=== PATIENT | male | born 1980 | race Caucasian/White ===

== ENCOUNTER 2017-04-17 18:16 | Emergency (ER) ==
[2017-04-17 18:23] VITALS: BP 185/113; TEMP 98.4; BMI 36.3
--- NOTE | 2017-04-17 18:28 | ED.PDOC ---
General ED Provider: Dr. 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 [ End ]2 days 98.4 76 16 98% 185/113 07/11 Time Seen by Physician: 18:27 Mode of Arrival: Walk-In Information Source: Patient Exam Limitations: No limitations Nursing and Triage Documentation Reviewed and Agree: No Review of Systems - Review Of Systems Constitutional: Reports: No symptoms Eyes: Reports: No symptoms Ears, Nose, Mouth, Throat: Reports: No symptoms Respiratory: Reports: No symptoms Cardiac: Reports: No symptoms GI: Reports: No symptoms : Reports: No symptoms Musculoskeletal: Reports: Back pain (left sciatic radiation no radiation with SLR but increased backpain L234) Neurological: Reports: Other Endocrine: Reports: No symptoms Hematologic/Lymphatic: Reports: No symptoms All Other Systems: Other Past Medical History - Past Medical History Previously Healthy: Yes Endocrine: Reports: None Cardiovascular: Reports: Hypertension Respiratory: Reports: None Hematological: Reports: None Gastrointestinal: Reports: None Genitourinary: Reports: None Neuro/Psych: Reports: None Musculoskeletal: Reports: None Cancer: Reports: None - Surgical History General Surgical History: Reports: Appendectomy - Family History Family History: Reports: Unknown - Social History Smoking Status: Former smoker Hx Substance Use: No Alcohol Screening: None Physical Exam - Physical Exam Appearance: Well-appearing Pain Distress: Moderate Neck: Supple Respiratory: Airway patent Musculoskeletal: Normal strength, ROM intact, No edema, No calf tenderness ( tender L234) Skin: Warm, Dry, Normal color Neurological: Sensation intact, Motor intact, Reflexes intact, Cranial nerves intact, Alert, Oriented Psychiatric: Affect appropriate, Mood appropriate Critical Care Note - Critical Care Note Total Time (mins): 0 Course - Course Hematology/Chemistry: 04/17/17 18:40 Orders, Labs, Meds: Lab Review 04/17/17 04/17/17 18:40 18:50 WBC 6.20 RBC 5.11 Hgb 15.0 Hct 41.8 L MCV 81.8 MCH 29.4 MCHC 35.9 H RDW Coeff of Maki 12.6 Plt Count 207 Immature Gran % (Auto) 0.2 Neut % (Auto) 61.2 Lymph % (Auto) 26.8 Mason % (Auto) 8.9 Eos % (Auto) 2.4 Baso % (Auto) 0.5 Immature Gran # (Auto) 0.0 Neut # 3.8 Lymph # 1.7 Mason # 0.6 Eos # 0.2 Baso # 0.0 Urine Color Yellow Urine Clarity Clear Urine pH 7.0 Ur Specific [place] 1.015 Urine Protein Negative Urine Glucose (UA) Negative Urine Ketones Negative Urine Blood Negative Urine Nitrite Negative Urine Bilirubin Negative Urine Urobilinogen 0.2 Ur Leukocyte Esterase Negative Orders Category Date Time Status CBC W/ AUTO DIFF Stat LAB 04/17/17 18:40 Completed URINALYSIS C & S IF INDICATED Stat LAB 04/17/17 18:50 Completed Ketorolac Tromethamine [Toradol] MEDS 04/17/17 18:35 Discontinued 60 mg IM ONCE STA Orphenadrine Citrate [Norflex] MEDS 04/17/17 18:35 Discontinued 60 mg IM ONCE STA CT LUMBAR SPINE W/O CONTRAST Stat RADS 04/17/17 18:26 Ordered Medications Discontinued Medications Generic Name Dose Route Start Last Admin Trade Name Freq PRN Reason Stop Dose Admin Ketorolac Tromethamine 60 mg 04/17/17 18:35 Toradol IM 04/17/17 18:36 ONCE STA Orphenadrine Citrate 60 mg 04/17/17 18:35 Norflex IM 04/17/17 18:36 ONCE STA Vital Signs: Temp Pulse Resp BP Pulse Ox 04/17/17 18:16 98.4 F 76 16 185/113 H 98 Departure - Departure Time of Disposition: 19:11 Disposition: HOME SELF-CARE Discharge Problem: Low back pain Qualifiers: Chronicity: acute Back pain laterality: left Sciatica presence: with sciatica Sciatica laterality: sciatica of left side Qualifier Code: (M54.42) Lumbago with sciatica, left side Instructions: Acute Low Back Pain (ED), Lower Back Exercises (ED) Condition: Fair Pt referred to PMD for follow-up: Yes Additional Instructions: CBC AND URINE ARE NORMAL FOLLOW UP WITH PMD CALL IN MORNING FOR FOLLOW UP MAY FOLLOW UP WITH [facility] avoid bed rest no lifting for three days ice 20 minutes three times a day norflex for spasms, toradol for pain Prescriptions: Orphenadrine Citrate [Norflex] 100 mg PO Q12HR PRN #30 tablet.er PRN Reason: Spasms Ketorolac Tromethamine [Toradol] 10 mg PO QID PRN #20 tablet PRN Reason: PAIN Allergies/Adverse Reactions: Allergies No Known Allergies Allergy (Verified 04/17/17 18:21) Home Medications: Ambulatory Orders Ketorolac Tromethamine [Toradol] 10 mg PO QID PRN #20 tablet 04/17/17 Lisinopril/Hydrochlorothiazide [Lisinopril-Hctz 10-12.5 mg Tab] 1 each PO DAILY 04/17/17 Orphenadrine Citrate [Norflex] 100 mg PO Q12HR PRN #30 tablet.er 04/17/17
[2017-04-17] MEDS ORDERED: TORADOL IM STA (18:35)
[2017-04-17] MEDS ORDERED: NORFLEX IM STA (18:35)
[2017-04-17 18:43] LABS: BASOPHILS % (AUTO) 0.5 % (0.0-3.0); EOSINOPHILS # (AUTO) 0.2 K/ul (0.0-0.7); EOSINOPHILS % (AUTO) 2.4 % (0.0-7.0); HEMATOCRIT 41.8 % (42.0-52.0); IMMATURE GRANULOCYTE % (AUTO) 0.2 % (0.0-5.0); LYMPHOCYTES # (AUTO) 1.7 K/uL (0.60-3.4); LYMPHOCYTES % (AUTO) 26.8 (10.0-50.0); MEAN CORPUSCULAR HEMOGLOBIN 29.4 pg (27.0-31.0); MEAN CORPUSCULAR HGB CONC 35.9 (31.8-35.4); MEAN CORPUSCULAR VOLUME 81.8 fl (80.0-94.0); MONOCYTES # (AUTO) 0.6 K/uL (0.4-2.0); MONOCYTES % (AUTO) 8.9 (0-10); NEUTROPHILS # (AUTO) 3.8 K/ul (2.0-6.9); NEUTROPHILS % (AUTO) 61.2; PLATELET COUNT 207 10^3/uL (140-440); RED BLOOD COUNT 5.11 10^6/ul (4.70-6.10)
[2017-04-17 19:00] LABS: BILIRUBIN,URINE Negative (NEGATIVE); KETONES,URINE Negative (NEGATIVE); LEUKOCYTE ESTERASE ,URINE Negative (NEGATIVE); NITRITE,URINE Negative (NEGATIVE); PROTEIN,URINE Negative (NEGATIVE); URINE, BLOOD Negative (NEGATIVE)
[2017-04-17 19:01] LABS: ADD URINE MICROSCOPIC NO
--- NOTE | 2017-04-17 19:12 | CT ---
EXAM: Noncontrast CT of the lumbar spine HISTORY: Sciatic radiation, new onset back pain COMPARISON: 01/01/2017 chest x-ray TECHNIQUE: Noncontrast CT of the lumbar spine FINDINGS: There is mild remote anterior wedging of the T12 vertebral body and minimal anterior wedging of the L1 vertebral body, similar to prior chest x-ray. The other lumbar vertebral bodies are normal in hei ght. No listhesis is seen. No significant intervertebral disc height loss is identified. Atherosclerotic calcifications are present. A small right piriformis muscle apparent lipoma is incid entally noted. T12-L1: No disc bulge. No foraminal or spinal canal stenosis. L1-2: No disc bulge. No foraminal or spinal canal stenosis. L2-3: No disc bulge. No foraminal or spinal canal stenosis. L3-4: No disc bulge. Mild facet arthropathy. Mild bilateral foraminal stenosis. No spinal canal stenosis. L4-5: Minimal disc bulge. Mild facet arthropathy. Mild bilateral foraminal stenosis. No spinal ca nal stenosis. L5-S1: Small diffuse disc bulge with small superimposed posterior central disc protrusion. Mild fac et arthropathy. No foraminal or spinal canal stenosis. IMPRESSION: No acute osseous abnormality. Mild multilevel facet arthropathy. L5-S1 small diffuse disc bulge with small superimposed posterior central disc protrusion. No spinal canal stenosis identified. Mild bilateral foraminal stenosis at L3-4 and L4-5.
== END 2017-04-17 19:29 | disposition home or self-care (01) ==
LOC: ED 18:16
DX: M54.42 Lumbago with sciatica, left side (principal); I10 Essential (primary) hypertension
CPT/HCPCS: 36415; 81001; 85025; 96372; 99282

== ENCOUNTER 2017-06-21 13:55 | Emergency (ER) ==
[2017-06-21 13:58] VITALS: BMI 35.6
[2017-06-21 14:02] VITALS: BP 180/97; TEMP 97.9
--- NOTE | 2017-06-21 14:41 | ED.PDOC ---
General ED Provider: Dr. JOHNY FERREIRA JR Chief Complaint: Extremity Pain/Injury Stated Complaint: Pt has swelling and pain in the right elbow. right elbow popped yesterday pain and swelling after HAD HAD A "KINK" IN ELBOW FOR THREE OR FOUR DAYS[ End ]97.9 79 20 98% 180/97 10 The right elbow popped yesterday his neice jumped into his arms, swelling and pain in the right elbow since ; limited ROM in the right elbow. [ End ]. TENDER RIGHT MEDIAL ELBOW(ULNAR) TENDERNESSS NONFOCAL Time Seen by Physician: 14:40 Mode of Arrival: Walk-In Information Source: Patient Exam Limitations: No limitations Primary Care Provider: GUERITA GALAN Nursing and Triage Documentation Reviewed and Agree: No Review of Systems - Review Of Systems Constitutional: Reports: No symptoms Eyes: Reports: No symptoms Ears, Nose, Mouth, Throat: Reports: No symptoms Respiratory: Reports: No symptoms Cardiac: Reports: No symptoms GI: Reports: No symptoms : Reports: No symptoms Musculoskeletal: Reports: Joint pain Skin: Reports: No symptoms Neurological: Reports: No symptoms Endocrine: Reports: No symptoms Hematologic/Lymphatic: Reports: No symptoms All Other Systems: Other Past Medical History - Past Medical History Previously Healthy: Yes Endocrine: Reports: None Cardiovascular: Reports: Hypertension Respiratory: Reports: None Hematological: Reports: None Gastrointestinal: Reports: None Genitourinary: Reports: None Neuro/Psych: Reports: None Musculoskeletal: Reports: None Cancer: Reports: None - Surgical History General Surgical History: Reports: Appendectomy - Family History Family History: Reports: Unknown - Social History Smoking Status: Former smoker Hx Substance Use: No Alcohol Screening: None - Immunizations Tetanus Shot up to Date: Yes Physical Exam - Physical Exam Appearance: Well-appearing, Obese Pain Distress: Moderate Eyes: ADITYA, EOMI, Conjunctiva clear ENT: Ears normal, Nose normal, Oropharynx normal Respiratory: Airway patent, Breath sounds clear, Breath sounds equal, Respirations nonlabored Cardiovascular: RRR GI/: Soft, Nontender, No masses, Bowel sounds normal, No Organomegaly Musculoskeletal: Limited ROM Skin: Warm, Dry, Normal color Neurological: Sensation intact, Motor intact, Reflexes intact, Cranial nerves intact, Alert, Oriented Psychiatric: Affect appropriate, Mood appropriate Critical Care Note - Critical Care Note Total Time (mins): 0 Course - Course Orders, Labs, Meds: Orders Category Date Time Status ELBOW, RIGHT MIN 3 VIEWS Stat RADS 06/21/17 14:40 Completed Vital Signs: Temp Pulse Resp BP Pulse Ox 06/21/17 13:58 97.9 F 79 20 180/97 H 98 Departure - Departure Time of Disposition: 15:19 Disposition: HOME SELF-CARE Discharge Problem: Injury of upper extremity Sprain of right elbow Qualifiers: Encounter type: initial encounter Qualifier Code: (S53.401A) Unspecified sprain of right elbow, initial encounter Instructions: Elbow Sprain (ED) Condition: Fair Pt referred to PMD for follow-up: Yes Additional Instructions: DAILY RANGE OF MOTION NAPROSYN OR NORCO FOR PAIN NO USE OF RIGHT ARM FOR THREEDAYS ICE 20 MINUTES THREE TIMES A DAY SLING FOR COMFORT RECHECK PMD ONE WEEK REPEAT X-RAYS IF NOT RESOLVED Prescriptions: Hydrocodone Bit/Acetaminophen [[place] 5-325] 1 - 2 tab PO Q6HR PRN #30 tablet PRN Reason: pain Naproxen [Naprosyn] 500 mg PO Q12HR PRN #30 tablet PRN Reason: PAIN Allergies/Adverse Reactions: Allergies No Known Allergies Allergy (Verified 04/17/17 18:21) Home Medications: Ambulatory Orders Lisinopril/Hydrochlorothiazide [Lisinopril-Hctz 10-12.5 mg Tab] 1 each PO DAILY 04/17/17 Hydrocodone Bit/Acetaminophen [[place] 5-325] 1 - 2 tab PO Q6HR PRN #30 tablet Naproxen [Naprosyn] 500 mg PO Q12HR PRN #30 tablet 06/21/17
--- NOTE | 2017-06-21 14:59 | DI ---
EXAM: RIGHT ELBOW HISTORY: Acute pain after trauma FINDINGS: Right elbow three-view. Bone and joint structures appear normal. There is no joint disl ocation or effusion. No fracture is identified. Bone density and soft tissues are within normal li mits. IMPRESSION: Findings within normal limits.
== END 2017-06-21 15:49 | disposition home or self-care (01) ==
LOC: ED 13:55
DX: S53.401A Unspecified sprain of right elbow, initial encounter (principal); X50.1XXA Overexertion from prolonged static or awkward postures, initial encounter
CPT/HCPCS: 99282

== ENCOUNTER 2017-06-25 10:54 | Emergency (ER) ==
[2017-06-25 10:55] VITALS: BMI 35.6
[2017-06-25 10:59] VITALS: BP 200/111; TEMP 97.5
--- NOTE | 2017-06-25 12:01 | CT ---
EXAM: CT of the right elbow without contrast COMPARISON: Right elbow radiograph 06/21/2017. HISTORY: Myrtle the elbow pop while mopping 5 days ago. Swelling with painful flexion and extension. TECHNIQUE: CT images of the right elbow were obtained. Axial reconstructions with sagittal and cor onal reformats were provided using both soft tissue and bone algorithm. FINDINGS: There is moderately severe osteoarthrosis involving the ulnohumeral articulation with asa nt space narrowing and marginal osteophytes. Mild degenerative spurring at the radiocapitellar trinity culation. Multiple punctate calcifications along the central, posterior medial aspect of the ulnohu meral articulation suggesting multiple loose bodies/secondary synovial osteochondromatosis. Punctat e calcific densities along the lateral aspect of the radial head/neck and anterior to the distal hum erus as well. 4 x 2 mm ossification along the tip of the olecranon process along the margin of the ulnohumeral articulation as seen on image 34 of the sagittal reformats with relatively corticated ma rgins, favoring sequela of old trauma as this was likely also present on radiographs 02/17/2016. Th ere is a large elbow effusion with capsular swelling anteriorly and posteriorly. 2 mm olecranon bone spur. No soft tissue mass identified. Sub centimeter medial epitrochlear lymph node which is nonpathologi c by size criteria. There is subcutaneous edema and ill-defined subcutaneous fluid throughout the p osterior aspect of the elbow extending medially and laterally without a discrete drainable fluid col lection. IMPRESSION: 1. Osteoarthrosis with most severe changes at the ulnohumeral articulation as described. Small oss ification adjacent to the tip of the olecranon process favoring sequela of an old avulsion injury ra ther than an acute fracture as described. 2. Large elbow effusion which is nonspecific. Correlate clinically for signs of infection/inflamma tion and consider further assessment with MRI of the elbow in order to exclude soft tissue injury or an occult acute osseous injury. Consider joint aspiration. 3. Multiple loose bodies/secondary synovial osteochondromatosis. 4. Subcutaneous edema posteriorly, medially and laterally without a drainable fluid collection. 5. Small olecranon bone spur.
--- NOTE | 2017-06-25 12:38 | ED.PDOC ---
General ED Provider: Dr. AMPARO EDMONDS Chief Complaint: Elbow Pain/Injury Stated Complaint: ELBOW PAIN RIGHT Time Seen by Physician: 11:00 (SEEN WITH STAFF AT ALL TIMES ) Mode of Arrival: Walk-In Information Source: Patient Exam Limitations: No limitations Primary Care Provider: GUERITA GALAN Nursing and Triage Documentation Reviewed and Agree: Yes (WAS SEEN AT [facility] FEW DAYS AGO X [facility] WE[facility] NEGATIVE NO NEW INJURY) Musculoskeletal Complaint Exam - Elbow Pain Complaint/Exam Mechanism of Injury: Reports: No known trauma Onset/Duration: 4 DAYS AGO HAD SUDDEN PAIN AND WAS SEEN AT [facility] Symptoms Are: Still present Initial Severity: Moderate Current Severity: Moderate Character: Reports: Throbbing, Spasmodic, Stiffness Alleviating: Reports: Rest Aggravating: Reports: Movement Associated Signs and Symptoms: Denies: Swelling, Redness, Bruising, Fever, Weakness, Numbness, Tingling Related History: Reports: Similar episode Related Surgical History: Reports: None Tenderness: Present: Medial Condyle, Lateral Condyle Limited Range of Motion: Present: Flexion, Extension, Pronation, Supination Differential Diagnoses: Closed Fracture, Bursitis Review of Systems - Review Of Systems Constitutional: Reports: No symptoms Eyes: Reports: No symptoms Ears, Nose, Mouth, Throat: Reports: No symptoms Respiratory: Reports: No symptoms Cardiac: Reports: No symptoms GI: Reports: No symptoms : Reports: No symptoms Musculoskeletal: Reports: Joint pain (RIGHHT ELBOW PAIN) Skin: Reports: No symptoms Neurological: Reports: No symptoms Endocrine: Reports: No symptoms Hematologic/Lymphatic: Reports: No symptoms All Other Systems: Reviewed and Negative Past Medical History - Past Medical History Previously Healthy: Yes Endocrine: Reports: None Cardiovascular: Reports: Hypertension Respiratory: Reports: None Hematological: Reports: None Gastrointestinal: Reports: None Genitourinary: Reports: None Neuro/Psych: Reports: None Musculoskeletal: Reports: None Cancer: Reports: None - Surgical History General Surgical History: Reports: Appendectomy - Family History Family History: Reports: Unknown - Social History Smoking Status: Former smoker Hx Substance Use: No Alcohol Screening: None Physical Exam - Physical Exam Appearance: Well-appearing, No pain distress, Well-nourished Eyes: ADITYA, EOMI, Conjunctiva clear ENT: Ears normal, Nose normal, Oropharynx normal Respiratory: Airway patent, Breath sounds clear, Breath sounds equal, Respirations nonlabored Cardiovascular: RRR, Pulses normal, No rub, No murmur GI/: Soft, Nontender, No masses, Bowel sounds normal, No Organomegaly Musculoskeletal: Limited ROM (RIGHT ELBOW GROSSLY WNL) Skin: Warm, Dry, Normal color Neurological: Sensation intact, Motor intact, Reflexes intact, Cranial nerves intact, Alert, Oriented Psychiatric: Affect appropriate, Mood appropriate Interpretation - Radiology Interpretation Radiology Interpretation By: Radiologist Radiology Results: No acute changes (DJD) Critical Care Note - Critical Care Note Total Time (mins): 0 Course - Course Orders, Labs, Meds: Orders Category Date Time Status CT ELBOW RIGHT WO CONTRAST Stat RADS 06/25/17 11:13 Completed Vital Signs: Temp Pulse Resp BP Pulse Ox 06/25/17 10:55 97.5 F L 92 H 20 200/111 H 99 Departure - Departure Time of Disposition: 12:40 Disposition: HOME SELF-CARE Discharge Problem: Elbow joint pain, Elbow pain, right Instructions: Arthralgia (ED), Elbow Sprain (ED) Condition: Good Pt referred to PMD for follow-up: Yes Additional Instructions: Please call your Family Physician as soon as possible to schedule a follow-up appointment. Allergies/Adverse Reactions: Allergies No Known Allergies Allergy (Verified 06/25/17 11:01) Home Medications: Ambulatory Orders Lisinopril/Hydrochlorothiazide [Lisinopril-Hctz 10-12.5 mg Tab] 1 each PO DAILY 04/17/17
== END 2017-06-25 12:46 | disposition home or self-care (01) ==
LOC: ED 10:54
DX: M25.521 Pain in right elbow (principal)
CPT/HCPCS: 99282

== ENCOUNTER 2017-08-21 05:47 | Emergency (ER) ==
[2017-08-21 05:47] VITALS: BMI 35.6
[2017-08-21 06:02] VITALS: TEMP 98.2
[2017-08-21] MEDS ORDERED: ANUCORT-HC RC ONE (06:48)
[2017-08-21] MEDS ORDERED: ANUCORT-HC RC STA (06:49)
--- NOTE | 2017-08-21 06:55 | ED.PDOC ---
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 [address] back to [place] started having rectal pain and bleeding leaking through his clothing. Time Seen by Physician: 06:00 Mode of Arrival: Walk-In Information Source: Patient Exam Limitations: No limitations Nursing and Triage Documentation Reviewed and Agree: Yes <LETICIA FOREMAN - Last Filed: 08/21/17 06:52> <NIRU ALMEIDA - Last Filed: 08/21/17 07:48> ED Provider: Dr. NIRU ALMEIDA Chief Complaint: GI Bleed Primary Care Provider: GUERITA GALAN GI Complaint Exam - Rectal Complaint/Exam Patient Complains of: Reports: Rectal pain, Rectal bleeding Onset/Duration: 3 days ago Symptoms Are: Still present Timing: Constant Initial Severity: Moderate Current Severity: Severe Location: Reports: Anal, Rectal Character: Reports: Sharp, Burning, Itching, Pressure Aggravating: Reports: Bowel movement, Sitting Alleviating: Reports: None Associated Signs and Symptoms: Reports: Rectal bleeding, Blood-streaked stool, Blood without stool Related History: Denies: Similar episode, Hemorrhoids, Proctitis, Crohn's, STD, Pilonidal Abcess, Perirectal Abcess, Hx of anal intercourse, Foriegn object Related Surgical History: Reports: Appendectomy Rectal Exam: Present: External hemorrhoids Differential Diagnoses: Hemorrhoids <LETICIA FOREMAN - Last Filed: 08/21/17 06:52> Review of Systems - Review Of Systems Constitutional: Reports: No symptoms Respiratory: Reports: No symptoms Cardiac: Reports: No symptoms GI: Reports: Rectal bleeding (anal pain) : Reports: No symptoms Musculoskeletal: Reports: No symptoms Skin: Reports: No symptoms Neurological: Reports: No symptoms All Other Systems: Reviewed and Negative <NIRU ALMEIDA - Last Filed: 08/21/17 07:48> Past Medical History - Past Medical History Previously Healthy: Yes Endocrine: Reports: None Cardiovascular: Reports: Hypertension Respiratory: Reports: None Hematological: Reports: None Gastrointestinal: Reports: None Genitourinary: Reports: None Neuro/Psych: Reports: None Musculoskeletal: Reports: None Cancer: Reports: None - Surgical History General Surgical History: Reports: Appendectomy - Family History Family History: Reports: Unknown - Social History Smoking Status: Former smoker Hx Substance Use: No Alcohol Screening: None - Immunizations Tetanus Shot up to Date: Yes <KELLENLETICIA - Last Filed: 08/21/17 06:52> Physical Exam - Physical Exam Appearance: Ill-appearing Ill-appearing: Mild Pain Distress: Moderate Respiratory: Airway patent, Breath sounds clear, Breath sounds equal, Respirations nonlabored Cardiovascular: RRR, Pulses normal, No rub, No murmur GI/: Soft, Nontender, No masses, Bowel sounds normal, No Organomegaly Musculoskeletal: Normal strength, ROM intact, No edema, No calf tenderness Neurological: Sensation intact, Motor intact, Alert, Oriented Psychiatric: Anxious <ANGELJOSUELETICIA - Last Filed: 08/21/17 06:52> - Physical Exam Appearance: Ill-appearing, Well-nourished, Obese Ill-appearing: Mild Pain Distress: Moderate Respiratory: Airway patent, Breath sounds clear, Breath sounds equal, Respirations nonlabored Cardiovascular: RRR, Pulses normal, No rub, No murmur GI/: Soft, No masses, Bowel sounds normal, No Organomegaly, Tender (Rectal exam: thrombosed external hemorhoid at 3 o'clock position, very tender to palpation. Remainder of exam unremarkable) Skin: Warm, Dry, Normal color Psychiatric: Affect appropriate, Mood appropriate, Anxious <NIRU ALMEIDA - Last Filed: 08/21/17 07:48> Procedures <KELLENLETICIA - Last Filed: 08/21/17 06:52> - Incision and Drainage Site: anus Instrument Used: 11 Blade I & D Procedure: Yes: Hibiclens Prep Lidocaine Used: No Type of Drainage: Present: Blood (blood clot expressed from hemorrhoid) Irrigated: No <NIRU ALMEIDA - Last Filed: 08/21/17 07:48> - Incision and Drainage Progress: Hemorrhoid cleansed , then incised with #11 blade, clot manually expressed and removed. Sterile 4x4s packed into area. Bleeding minimal. Pt tolerated procedure well. (NIRU ALMEIDA) Physician Notification - Case Discussed Time of Notification: 07:08 Endorsed To/Discussed With: Dr Haskins <LETICIA FOREMAN - Last Filed: 08/21/17 06:52> Critical Care Note - Critical Care Note Total Time (mins): 0 <LETICIA FOREMAN - Last Filed: 08/21/17 06:52> Course - Course Hematology/Chemistry: 08/21/17 07:00 <ALMEIDA,NIRU - Last Filed: 08/21/17 07:48> - Course Orders, Labs, Meds: Lab Review 08/21/17 07:00 WBC 5.35 RBC 5.04 Hgb 14.8 Hct 42.1 MCV 83.5 MCH 29.4 MCHC 35.2 RDW Coeff of Maki 13.1 Plt Count 179 Immature Gran % (Auto) 0.2 Neut % (Auto) 63.4 Lymph % (Auto) 23.6 [place] % (Auto) 10.5 H Eos % (Auto) 1.7 Baso % (Auto) 0.6 Immature Gran # (Auto) 0.0 Neut # 3.4 Lymph # 1.3 [place]les # 0.6 Eos # 0.1 Baso # 0.0 Orders Category Date Time Status CBC W/ AUTO DIFF Stat LAB 08/21/17 07:00 Completed COMPREHENSIVE METABOLIC PANEL Stat LAB 08/21/17 07:00 Received Hydrocortisone Acetate [Anucort-Hc] MEDS 08/21/17 06:48 Discontinued 1 supp RC .STK-MED ONE Hydrocortisone Acetate [Anucort-Hc] MEDS 08/21/17 06:49 Discontinued 1 supp RC ONCE STA Medications Discontinued Medications Generic Name Dose Route Start Last Admin Trade Name Konrad PRN Reason Stop Dose Admin Hydrocortisone Acetate 1 supp 08/21/17 06:49 08/21/17 06:50 Anucort-Hc RC 08/21/17 06:50 Not Given ONCE STA Vital Signs: Temp Pulse Resp BP Pulse Ox 08/21/17 05:48 98.2 F 93 H 24 184/122 H 98 Departure - Departure Pt referred to PMD for follow-up: Yes Disposition Discussed With: Patient <LETICIA FOREMAN - Last Filed: 08/21/17 06:52> - Departure Time of Disposition: 07:47 Pt referred to PMD for follow-up: No (if still painful or bleeding in 24 hours, see doctor) Disposition Discussed With: Patient <ELE ALMEIDANATHAN - Last Filed: 08/21/17 07:48> - Departure Disposition: HOME SELF-CARE Discharge Problem: Rectal or anal pain, External bleeding hemorrhoids Hypertension Qualifiers: Hypertension type: unspecified Qualified Code(s): I10 - Essential (primary) hypertension Instructions: Hemorrhoids (ED) Condition: Fair Additional Instructions: Use suppositories every 4 hours as needed for pain. Sitz bathes 4 times a day as needed. Follow up with PCP to discuss high fiber diet to help prevent hemorrhoids from recurring and if not better in 24 hours for surgery referral take laxative as needed to keep stool soft this week. Prescriptions: Hydrocortisone Acetate [Anusol-Hc] 25 mg RC Q2-4H PRN #20 supp.rect PRN Reason: rectal pain Allergies/Adverse Reactions: Allergies No Known Allergies Allergy (Verified 08/21/17 05:58) Home Medications: Ambulatory Orders Lisinopril/Hydrochlorothiazide [Lisinopril-Hctz 10-12.5 mg Tab] 1 each PO DAILY 04/17/17 Hydrocortisone Acetate [Anusol-Hc] 25 mg RC Q2-4H PRN #20 supp.rect 08/21/17 Ibuprofen 400 mg PO Q4-6H PRN 08/21/17
[2017-08-21 07:06] LABS: BASOPHILS % (AUTO) 0.6 % (0.0-3.0); EOSINOPHILS # (AUTO) 0.1 K/ul (0.0-0.7); EOSINOPHILS % (AUTO) 1.7 % (0.0-7.0); HEMATOCRIT 42.1 % (42.0-52.0); HEMOGLOBIN 14.8 g/dl (14.0-18.0); IMMATURE GRANULOCYTE % (AUTO) 0.2 % (0.0-5.0); LYMPHOCYTES # (AUTO) 1.3 K/uL (0.60-3.4); LYMPHOCYTES % (AUTO) 23.6 (10.0-50.0); MEAN CORPUSCULAR HEMOGLOBIN 29.4 pg (27.0-31.0); MEAN CORPUSCULAR HGB CONC 35.2 (31.8-35.4); MEAN CORPUSCULAR VOLUME 83.5 fl (80.0-94.0); MONOCYTES # (AUTO) 0.6 K/uL (0.4-2.0); MONOCYTES % (AUTO) 10.5 (0-10); NEUTROPHILS # (AUTO) 3.4 K/ul (2.0-6.9); NEUTROPHILS % (AUTO) 63.4; PLATELET COUNT 179 10^3/uL (140-440); RED BLOOD COUNT 5.04 10^6/ul (4.70-6.10); WHITE BLOOD COUNT 5.35 K/ul (4.2-10.2)
[2017-08-21 07:27] LABS: ALBUMIN/GLOBULIN RATIO 1.29; ANION GAP 12.8; BILIRUBIN,TOTAL 0.62 mg/dL (0.00-1.20); BUN/CREATININE RATIO 9.4; CALCIUM 9.7 mg/dL (8.2-10.2); CREATININE 1.17 mg/dL (0.60-1.10); POTASSIUM 3.8 mmol/L (3.5-5.1); TOTAL PROTEIN 7.1 g/dL (6.4-8.2)
[2017-08-21 08:12] VITALS: BP 117/70
== END 2017-08-21 08:13 | disposition home or self-care (01) ==
LOC: ED 05:47
DX: K64.5 Perianal venous thrombosis (principal); K62.5 Hemorrhage of anus and rectum; I10 Essential (primary) hypertension
CPT/HCPCS: 36415; 80053; 85025; 99283

== ENCOUNTER 2018-12-17 08:34 | Emergency (ER) ==
[2018-12-17 08:42] VITALS: BP 179/102; TEMP 98.9; BMI 40.2
--- NOTE | 2018-12-17 09:41 | US ---
EXAM: ULTRASOUND ABDOMEN LIMITED HISTORY: Abdominal pain FINDINGS: Ultrasound abdomen, limited. Gallego-scale ultrasound and color Doppler was performed. Live r size was normal at 13.5 cm. The liver demonstrates diffuse increased sound attenuation consistent w ith steatosis. There is a hypoechoic region within the liver near the gallbladder fossa which is lik vandana related to focal fatty sparing. No intrahepatic biliary dilatation. The main portal vein is pat ent and hepatopedal. No gallstones or gallbladder sludge. Gallbladder wall thickness was normal at 0.21 cm. The common b ile duct diameter was normal at 0.51 cm. Visualized pancreas was within normal limits. No ascites i dentified. Survey of the right kidney was grossly unremarkable. IMPRESSION: 1. Fatty liver. 2. No gallbladder pathology identified.
--- NOTE | 2018-12-17 09:49 | CT ---
EXAM: CT of the abdomen pelvis without contrast History: Right upper quadrant abdominal pain and midline abdominal pain, history of appendectomy. Comparison: Abdominal ultrasound 12/17/2018, CT abdomen pelvis 06/18/2014 Technique: Multiplanar CT images through the abdomen pelvis were obtained without the administration of IV contrast Findings: Lung bases are clear. No acute osseous abnormalities. No gallstones identified by CT. The liver is fatty. Spleen is unremarkable. No renal stones and no hydronephrosis. No ureteral calculi. Mild atherosclerotic vascular calcifications. No peripancrea tic inflammation. Adrenal glands are unremarkable. No bowel obstruction. Status post appendectomy. No bladder wall thickening. No free air and no ascites. No perirectal inflammation. Prostate is not enlarged. No inflammatory stranding. Impression: 1. No acute intra-abdominal or pelvic process. 2. Hepatic steatosis. 3. Status post appendectomy
--- NOTE | 2018-12-17 10:07 | ED.PDOC ---
General ED Provider: Dr. AMPARO EDMONDS Chief Complaint: Abdominal Pain Stated Complaint: abdominal pain upper abdomen Time Seen by Physician: 08:45 Mode of Arrival: Walk-In Information Source: Patient Exam Limitations: No limitations Primary Care Provider: GUERITA CUEVAS PICTORRI Nursing and Triage Documentation Reviewed and Agree: Yes Does patient meet sepsis criteria?: No System Inflammatory Response Syndrome: Not Applicable Sepsis Protocol: For patient's 13 years and over: Temp is 96.8 and below OR 101 and greater Pulse >90 BPM Resp >20/minute Acutely Altered Mental Status Are patient's symptoms suggestive of a new infection, such as: -Pneumonia -Skin, Soft Tissue -Endocarditis -UTI -Bone, Joint Infection -Implantable Device -Acute Abdominal Infection -Wound Infection -Meningitis -Blood Stream Catheter Infection -Unknown GI Complaint Exam - Abdominal Pain Complaint/Exam Onset: Gradual Duration: 1 day Symptoms Are: Still present Timing: Intermittent Initial Severity: Moderate Current Severity: Moderate Location of Pain: RUQ, LUQ, Epigastric Radiates To: Denies: Chest, Back, Flank, LLQ, RLQ, Inguinal Character: Reports: Aching Aggravating: Reports: None Alleviating: Reports: None Associated Signs and Symptoms: Denies: Diaphoresis, Fever, Cough, Chest pain, Dizziness, Back pain, Constipation, Blood in stool, Dysuria, Urinary frequency, Decreased urine output, Decreased appetite, Discharge, Nausea, Vomiting, Diarrhea, Decreased activity Related History: Reports: Similar episode AAA Risk Factors: Reports: Hypertension Cardiac Risk Factors: Reports: Hypertension, Elevated lipids Testicular Torsion Risk Factors: Reports: None Surgical Obstruction Risk Factors: Reports: None Related Surgical History: Reports: None Abdominal Findings: Present: None Differential Diagnoses: Pancreatitis, GB, Other Quality Indicators for Cardiac Chest Pain: EKG in 10min. Quality Indicator For Non-Traumatic Chest Pain/Syncope: EKG Performed Review of Systems - Review Of Systems Constitutional: Reports: No symptoms Eyes: Reports: No symptoms Ears, Nose, Mouth, Throat: Reports: No symptoms Respiratory: Reports: No symptoms Cardiac: Reports: No symptoms GI: Reports: Abdominal pain : Reports: No symptoms Musculoskeletal: Reports: No symptoms Skin: Reports: No symptoms Neurological: Reports: No symptoms Endocrine: Reports: No symptoms Hematologic/Lymphatic: Reports: No symptoms All Other Systems: Reviewed and Negative Past Medical History - Past Medical History Previously Healthy: Yes Endocrine: Reports: None Cardiovascular: Reports: Hypertension Respiratory: Reports: None Hematological: Reports: None Gastrointestinal: Reports: None Genitourinary: Reports: None Neuro/Psych: Reports: None Musculoskeletal: Reports: None Cancer: Reports: None - Surgical History General Surgical History: Reports: Appendectomy - Family History Family History: Reports: Unknown - Social History Smoking Status: Former smoker Hx Substance Use: No Alcohol Screening: None Physical Exam - Physical Exam Appearance: Well-appearing, No pain distress, Well-nourished Eyes: ADITYA, EOMI, Conjunctiva clear ENT: Ears normal, Nose normal, Oropharynx normal Respiratory: Airway patent, Breath sounds clear, Breath sounds equal, Respirations nonlabored Cardiovascular: RRR, Pulses normal, No rub, No murmur GI/: Soft, Nontender, No masses, Bowel sounds normal, No Organomegaly Musculoskeletal: Normal strength, ROM intact, No edema, No calf tenderness Skin: Warm, Dry, Normal color Neurological: Sensation intact, Motor intact, Reflexes intact, Cranial nerves intact, Alert, Oriented Psychiatric: Affect appropriate, Mood appropriate Interpretation - Radiology Interpretation Radiology Interpretation By: Radiologist (fatty liver) Critical Care Note - Critical Care Note Total Time (mins): 0 Course - Course Hematology/Chemistry: 12/17/18 08:55 12/17/18 08:55 Orders, Labs, Meds: Lab Review 12/17/18 12/17/18 12/17/18 08:50 08:55 08:55 WBC 5.83 RBC 5.21 Hgb 14.9 Hct 43.8 MCV 84.1 MCH 28.6 MCHC 34.0 RDW Coeff of Maki 12.5 Plt Count 227 Immature Gran % (Auto) 0.3 Neut % (Auto) 62.7 Lymph % (Auto) 26.8 [place] % (Auto) 8.2 Eos % (Auto) 1.5 Baso % (Auto) 0.5 Immature Gran # (Auto) 0.0 Neut # (Auto) 3.7 Lymph # (Auto) 1.6 [place] # (Auto) 0.5 Eos # (Auto) 0.1 Baso # (Auto) 0.0 Sodium 141.0 Potassium 4.09 Chloride 101.4 Carbon Dioxide 28.8 Anion Gap 14.89 BUN 17.2 Creatinine 1.18 H Estimated GFR (MDRD) 69.00 BUN/Creatinine Ratio 14.57 Glucose 101.8 Calcium 9.82 Total Bilirubin 0.47 AST 52.7 ALT 94.6 H Alkaline Phosphatase 52.2 Total Protein 7.65 Albumin 4.70 Globulin 2.95 Albumin/Globulin Ratio 1.59 Amylase 122.8 H Lipase 306.8 H Urine Color Yellow Urine Clarity Clear Urine pH 7.0 Ur Specific [place] 1.015 Urine Protein Negative Urine Glucose (UA) Negative Urine Ketones Negative Urine Blood Negative Urine Nitrite Negative Urine Bilirubin Negative Urine Urobilinogen 0.2 Ur Leukocyte Esterase Negative Orders Category Date Time Status NPO REMINDER: IMAGING ONCE CARE 12/17/18 08:47 Ordered AMYLASE Stat LAB 12/17/18 08:47 Ordered CBC W/ AUTO DIFF Stat LAB 12/17/18 08:47 Ordered COMPREHENSIVE METABOLIC PANEL Stat LAB 12/17/18 08:47 Ordered LIPASE Stat LAB 12/17/18 08:47 Ordered UA [URINALYSIS C & S IF INDICATED] Stat LAB 12/17/18 08:[address] ABD/PEL WO RENAL STONE PROT Stat RADS 12/17/18 08:47 Ordered ULTRASOUND ABDOMEN, RT. UPPER QUAD [U/S ABDOMEN RT RADS 12/17/18 08:47 Ordered UPPER QUAD] Stat Vital Signs: Temp Pulse Resp BP Pulse Ox 12/17/18 08:40 98.9 F 72 20 179/102 H 97 Departure - Departure Time of Disposition: 10:09 Disposition: HOME SELF-CARE Discharge Problem: Abdominal pain, Fatty liver Instructions: Non-Alcoholic Fatty Liver Disease (ED) Condition: Good Pt referred to PMD for follow-up: Yes IPMP verified?: No Additional Instructions: Please call your Family Physician as soon as possible to schedule a follow-up appointment.AT THIS TIME GALLBLADDER DISEASE MOSTLY IS RULED OUT BUT YOU CAN BENFIT FROM WHATS KNOWN HIDA SCAN WHICH DETECT LAZY GALL BLADDER WHICH CAN CAUSE PAIN LIKE YOUR. ALSO YOU HAVE SOME FAT DEPOSITED IN YOUR LIVER A CONDITION CALLED FATTY LIVER . YOU MUST AVOID FAST FOOD , BAD FOOD LOSE WEIGHT AND WORK OUT. PLEASESSE YOUR MD VILLAREAL Allergies/Adverse Reactions: Allergies No Known Allergies Allergy (Verified 12/17/18 08:42) Home Medications: Ambulatory Orders Lisinopril/Hydrochlorothiazide [Lisinopril-Hctz 10-12.5 mg Tab] 1 each PO DAILY 04/17/17 Aspirin 81 mg PO DAILY 12/17/18 Pravastatin Sodium [Pravachol] 20 mg PO DAILY 12/17/18 Disposition Discussed With: Patient
== END 2018-12-17 10:17 | disposition home or self-care (01) ==
LOC: ED 08:34
DX: R10.10 Upper abdominal pain, unspecified (principal); K76.0 Fatty (change of) liver, not elsewhere classified; E78.5 Hyperlipidemia, unspecified; I10 Essential (primary) hypertension
CPT/HCPCS: 36415; 74176; 80053; 81001; 82150; 83690; 85025; 99283